=== PATIENT | female | born 1985 | race Two or more races ===

== ENCOUNTER 2017-07-03 19:09 | Emergency (ER) | payer MEDICAID ==
--- NOTE | 2017-07-03 20:00 | ER Document Report ---
ED Medical Screen (RME) - General Chief Complaint: Abdominal Pain Stated Complaint: ABDOMINAL PAIN Time Seen by Provider: 07/03/17 19:59 Notes: Patient states that she recently had a miscarriage in December of this year. She states she is still currently trying to become . She states that she has missed her period this month by several days. She took a home test and it was positive. She is also developed some cramping that started yesterday. No bleeding or leakage of fluid from the vaginal area. No problems with urination. She states she is concerned she may be miscarrying again so she came to the emergency department for evaluation. TRAVEL OUTSIDE OF THE [place] IN LAST 30 DAYS: No Past Medical History - Social History Chew tobacco use (# tins/day): No Frequency of alcohol use: None Drug Abuse: None Renal/ Medical History: Denies: Hx Peritoneal Dialysis Past Surgical History: Reports: Hx Section - X2 - Immunizations Hx Diphtheria, Pertussis, Tetanus Vaccination: Yes Physical Exam - Vital signs Vitals: Temp Pulse Resp BP Pulse Ox 98.7 F 65 16 133/78 H 100 07/03/17 19:36 07/03/17 19:36 07/03/17 19:36 07/03/17 19:36 07/03/17 19:36 Course - Vital Signs Vital signs: Temp Pulse Resp BP Pulse Ox 98.7 F 65 16 133/78 H 100 07/03/17 19:36 07/03/17 19:36 07/03/17 19:36 07/03/17 19:36 07/03/17 19:36
[2017-07-03 20:37] LABS: ABSOLUTE EOSINOPHILS # (AUTO) 0.2 10^3/uL (0.0-0.6); ABSOLUTE LYMPHOCYTES (AUTO) 2.5 10^3/uL (0.5-4.7); ABSOLUTE MONOCYTES (AUTO) 0.6 10^3/uL (0.1-1.4); ABSOLUTE NEUT (AUTO) 2.9 10^3/uL (1.7-8.2); BASOPHILS % (AUTO) 0.7 % (0-2); EOSINOPHILS % (AUTO) 2.9 % (0-6); HEMATOCRIT 35.7 % (36.0-47.0); HEMOGLOBIN 12.3 g/dL (12.0-15.5); HGB HCT DIFFERENCE 1.2; LYMPHOCYTES % (AUTO) 40.3 % (13-45); MEAN CORPUSCULAR HEMOGLOBIN 33.1 pg (27.0-33.4); MEAN CORPUSCULAR HGB CONC 34.5 g/dL (32.0-36.0); MEAN CORPUSCULAR VOLUME 96 fl (80-97); MONOCYTES % (AUTO) 8.9 % (3-13); RED BLOOD COUNT 3.72 10^6/uL (3.72-5.28); RED CELL DISTRIBUTION WIDTH 13.2 % (11.5-14.0); SEGMENTED NEUTROPHILS % (AUTO) 47.2 % (42-78); WHITE BLOOD COUNT 6.2 10^3/uL (4.0-10.5)
[2017-07-03 20:48] LABS: ANION GAP 10 (5-19); BLOOD UREA NITROGEN 14 mg/dL (7-20); CARBON DIOXIDE 25 mmol/L (22-30); CHLORIDE 103 mmol/L (98-107); CREATININE RESULT 0.65 mg/dL (0.52-1.25); GLUCOSE 90 mg/dL (75-110); POTASSIUM 3.8 mmol/L (3.6-5.0); SODIUM 138.4 mmol/L (137-145)
[2017-07-03 20:55] LABS: APPEARANCE,URINE CLEAR; BILIRUBIN,URINE NEGATIVE (NEGATIVE); GLUCOSE, URINE NEGATIVE (NEGATIVE); KETONES,URINE NEGATIVE (NEGATIVE); LEUKOCYTE ESTERASE,URINE NEGATIVE (NEGATIVE); NITRITE,URINE NEGATIVE (NEGATIVE); PROTEIN,URINE NEGATIVE (NEGATIVE)
--- NOTE | 2017-07-03 22:32 | ER Document Report ---
ED GI/ - General Mode of Arrival: Ambulatory Information source: Patient TRAVEL OUTSIDE OF THE [place] IN LAST 30 DAYS: No - HPI Onset: Other - Refer to HPI notes Associated symptoms: Nausea Similar symptoms previously: No Recently seen / treated by doctor: No <BLAIR PENA - Last Filed: 07/04/17 00:07> <EMILIO MOTTA - Last Filed: 07/09/17 12:19> - General Chief Complaint: Abdominal Pain Stated Complaint: ABDOMINAL PAIN Time Seen by Provider: 07/03/17 19:59 Notes: Patient is a 32 year old female presenting to the ED for a positive test at home. Patient had a miscarriage in December and is concerned for this . Patient's last menstrual period was in May. Patient states she started having some cramps and morning nausea so she took a test at home. Patient is A1. 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 Patient denies any vaginal bleeding or severe cramping. Patient is O+ according to her history. Patient also only has 1 kidney. Patient has no other medical history and does not take any regular medications. Patient recently moved here from [place] and does not have a PCP or LITIGATION SERVICES MANAGER yet. (BLAIR PENA) Past Medical History - General Information source: Patient - Social History Smoking Status: Never Smoker Cigarette use (# per day): No Chew tobacco use (# tins/day): No Frequency of alcohol use: None Drug Abuse: None Family History: None Patient has suicidal ideation: No Patient has homicidal ideation: No Renal/ Medical History: Reports: Other - A1 Past Surgical History: Reports: Hx Section - X2 - Immunizations Hx Diphtheria, Pertussis, Tetanus Vaccination: Yes <BLAIR PENA - Last Filed: 07/04/17 00:07> Review of Systems - Review of Systems Constitutional: No symptoms reported EENT: No symptoms reported Cardiovascular: No symptoms reported Respiratory: No symptoms reported Gastrointestinal: See HPI, Abdominal pain, Nausea Genitourinary: No symptoms reported Female Genitourinary: No symptoms reported Musculoskeletal: No symptoms reported Skin: No symptoms reported Hematologic/Lymphatic: No symptoms reported Neurological/Psychological: No symptoms reported -: Yes All other systems reviewed and negative <BLAIR PENA - Last Filed: 07/04/17 00:07> Physical Exam - Vital signs Interpretation: Normal <BLAIR PENA - Last Filed: 07/04/17 00:07> <EMILIO MOTTA - Last Filed: 07/09/17 12:19> - Vital signs Vitals: Temp Pulse Resp BP Pulse Ox 98.7 F 65 16 133/78 H 100 07/03/17 19:36 07/03/17 19:36 07/03/17 19:36 07/03/17 19:36 07/03/17 19:36 - Notes Notes: GENERAL: Alert, interacts well. No acute distress. HEAD: Normocephalic, atraumatic. EYES: Appear normal. Pupils equal, round, and reactive to light. ENT: Moist mucus membranes, tongue midline. NECK: Full range of motion. Supple. Trachea midline. LUNGS: Clear to auscultation bilaterally, no wheezes, rales, or rhonchi. No respiratory distress. HEART: Regular rate and rhythm. No murmurs, gallops, or rubs. ABDOMEN: Soft, non-tender. Non-distended. Normal bowel sounds. EXTREMITIES: Moves all 4 extremities spontaneously. Normal strength. No edema. NEUROLOGICAL: Alert and oriented x3. Normal speech. No focal neurological deficits. GSC 15. PSYCH: Normal affect, normal mood. SKIN: Warm, dry, normal turgor. No rashes or lesions noted. (BLAIR PENA) Course - Laboratory Result Diagrams: 07/03/17 20:15 07/03/17 20:15 <BLAIR PENA - Last Filed: 07/04/17 00:07> - Laboratory Result Diagrams: 07/03/17 20:15 07/03/17 20:15 <EMILIO MOTTA - Last Filed: 07/09/17 12:19> - Re-evaluation Re-evalutation: 07/03/17 22:59 Patient presents emergency department home test was positive. She has had a little bit of cramping but no pain or bleeding. Patient is and found out during her first that she has a duplicate uterus and duplicate cervix. She had 2 C-sections successfully and had one miscarriage. She did go home test after she felt signs and symptoms of being and it was positive so she wanted confirmation here. She is hemodynamically stable no pain no nausea no vomiting no cramping no back pain. She is O+ by history. And well-appearing and nontoxic. No emergent concerns for ectopic . Discharge her to follow-up with [facility] [employer] SUPERVISOR physician gave her contact information to call in a.m. for close follow-up in 3-5 days and specifically discussed with her and friend at bedside reasons for ED return sooner including pain cramping bleeding or any other concerns. (EMILIO MOTTA) - Vital Signs Vital signs: Temp Pulse Resp BP Pulse Ox 98 F 65 20 130/72 H 100 07/03/17 23:11 07/03/17 23:11 07/03/17 23:11 07/03/17 23:11 07/03/17 23:11 - Laboratory Laboratory results interpreted by me: 07/03/17 07/03/17 07/03/17 20:15 20:15 20:15 Hct 35.7 L Beta HCG, Quant 494.53 H Urine Urobilinogen 2.0 H Discharge <BLAIR PENA - Last Filed: 07/04/17 00:07> <EMILIO MOTTA - Last Filed: 07/09/17 12:19> - Discharge Clinical Impression: First trimester Condition: Stable Disposition: HOME, SELF-CARE Additional Instructions: You are . care is best started as early in as possible. If you're unsure about continuing this , you should discuss this with your physician or with drug safety physician at [facility]. You should take only medications approved by your physician. Acetaminophen can safely be taken for minor pains. As a rule, medication for chronic conditions such as asthma or seizures can safely be continued. You should discuss with the physician every medicine you take. Any regular exercise program can be continued. Talk to your physician, however, before engaging in competitive or demanding sports. Alcohol, smoking, and "street drugs" are dangerous to your baby. Cocaine is especially dangerous. Don't use any illicit drugs! Referrals: ESTHER GORDON DO [[facility]] - (Contact his office in a.m. for follow- up appointment in the next 3-5 days return immediately to the emergency department for pain cramping bleeding or any other concerns) Scribe Attestation: 07/03/17 22:59 I personally performed the services described in the documentation reviewed the documentation recorded by my scribe in my presence and it accurately and completely records my words and actions (EMILIO MOTTA) Scribe Documentation - Scribe Written by Scribe:: Saurav Leahy 07/03/2017 22:55 acting as scribe for :: Sae <BLAIR PENA - Last Filed: 07/04/17 00:07>
[2017-07-03 23:14] VITALS: BP 130/72
== END 2017-07-03 23:11 | disposition home or self-care (01) ==
LOC: ER 19:09
DX: O26.91 Pregnancy related conditions, unspecified, first trimester (principal); R10.9 Unspecified abdominal pain; R11.0 Nausea
CPT/HCPCS: 36415; 80048; 81001; 84702; 85025; 99284

== ENCOUNTER → 2017-07-05 | Outpatient (CLI) | payer MEDICAID | LOC: OD 16:44 | PROVIDERS: ATTEND Obstetrics & Gynecology | DX: O20.0 Threatened abortion (principal) | CPT/HCPCS: 36415; 84702 ==

== ENCOUNTER 2017-07-18 20:37 | Emergency (ER) | payer MEDICAID ==
[2017-07-19 01:02] LABS: ABSOLUTE EOSINOPHILS # (AUTO) 0.2 10^3/uL (0.0-0.6); ABSOLUTE LYMPHOCYTES (AUTO) 2.3 10^3/uL (0.5-4.7); ABSOLUTE MONOCYTES (AUTO) 0.5 10^3/uL (0.1-1.4); ABSOLUTE NEUT (AUTO) 3.1 10^3/uL (1.7-8.2); BASOPHILS % (AUTO) 0.5 % (0-2); EOSINOPHILS % (AUTO) 2.5 % (0-6); HEMATOCRIT 35.6 % (36.0-47.0); HEMOGLOBIN 12.2 g/dL (12.0-15.5); LYMPHOCYTES % (AUTO) 37.8 % (13-45); MEAN CORPUSCULAR HEMOGLOBIN 32.6 pg (27.0-33.4); MEAN CORPUSCULAR HGB CONC 34.2 g/dL (32.0-36.0); MEAN CORPUSCULAR VOLUME 95 fl (80-97); MONOCYTES % (AUTO) 8.4 % (3-13); RED BLOOD COUNT 3.73 10^6/uL (3.72-5.28); RED CELL DISTRIBUTION WIDTH 12.9 % (11.5-14.0); SEGMENTED NEUTROPHILS % (AUTO) 50.8 % (42-78); WHITE BLOOD COUNT 6.2 10^3/uL (4.0-10.5)
--- NOTE | 2017-07-19 01:07 | ER Document Report ---
ED GI/ - General Chief Complaint: Vag Bleeding, +preg <12wks Stated Complaint: VAGINAL BLEEDING Time Seen by Provider: 07/19/17 00:54 TRAVEL OUTSIDE OF THE [place] IN LAST 30 DAYS: No - HPI Notes: 07/19/17 01:04 This is a A1 female with LMP June 07 estimated approximately 6 weeks gestation who presents with vaginal bleeding. This started shortly prior to coming to the emergency department with some mild brownish red blood. It is now just spotting and has decreased. She has no pain with this at all. She was seen earlier in the month and had a repeat quantitative hCG that was improving. She did have a miscarriage in December and is concerned she could be having another one. She knows her blood type is A+. She denies any dysuria hematuria or other recent illness. Denies fever. No trauma was involved - Related Data Allergies/Adverse Reactions: No Known Allergies Allergy (Unverified 07/18/17 21:30) Past Medical History - General Last Menstrual Period: 06/07 - Social History Smoking Status: Never Smoker Frequency of alcohol use: None Drug Abuse: None Family History: None Patient has suicidal ideation: No Patient has homicidal ideation: No Renal/ Medical History: Denies: Hx Peritoneal Dialysis Past Surgical History: Reports: Hx Section - X2 - Immunizations Hx Diphtheria, Pertussis, Tetanus Vaccination: Yes Review of Systems - Review of Systems -: Yes All other systems reviewed and negative Physical Exam - Vital signs Notes: Reviewed, see nurse's note - Notes Notes: GENERAL: VS as per nursing doc. Well-appearing, well-nourished and in no acute distress. HEAD: Atraumatic, normocephalic. EYES: Pupils equal round and reactive to light, extraocular movements intact, sclera anicteric, no conjunctival injection or discharge. ENT: Nares patent, oropharynx clear without exudates, moist mucous membranes. NECK: Normal range of motion, supple without lymphadenopathy. LUNGS: Breath sounds clear to auscultation bilaterally and equal. No wheezes rales or rhonchi. HEART: Regular rate and rhythm without murmurs. ABDOMEN: Soft, non-tender, normoactive bowel sounds. No guarding, no rebound. No masses appreciated. No Milan sign. BACK: No CVA tenderness. EXTREMITIES: Normal range of motion, no calf tenderness, no edema. NEUROLOGICAL: Grossly normal motor and sensory exam. PSYCH: Normal mood, normal affect. SKIN: Warm, dry, normal turgor, no lesions noted. Course - Laboratory Result Diagrams: 07/19/17 00:37
[2017-07-19 01:08] LABS: APPEARANCE,URINE CLEAR; BILIRUBIN,URINE NEGATIVE (NEGATIVE); GLUCOSE, URINE NEGATIVE (NEGATIVE); KETONES,URINE NEGATIVE (NEGATIVE); LEUKOCYTE ESTERASE,URINE NEGATIVE (NEGATIVE); NITRITE,URINE NEGATIVE (NEGATIVE); PROTEIN,URINE NEGATIVE (NEGATIVE); URINE SPECIFIC GRAVITY 1.031; UROBILINOGEN,URINE NEGATIVE mg/dL (<2.0)
--- NOTE | 2017-07-19 03:47 | RADIOLOGY REPORT (SQ) ---
EXAM DESCRIPTION: U/S OB TRANSVAGINAL W/O DOP COMPLETED DATE/TIME: 07/19/2017 3:27 am REASON FOR STUDY: Vaginal bleeding COMPARISON: None. TECHNIQUE: Transvaginal static and realtime grayscale images acquired of the pelvis. Additional elijah cted spectral and color Doppler images recorded. All images stored on PACs. [facility] [place] LIMITATIONS: None. FINDINGS: FETUS: Living intrauterine . EGA: 03/11/2018 MARIE: 6 weeks 3 days FHR: 115 beats per minute. SUBCHORIONIC BLEED: No. SIZE OF BLEED: Not applicable. UTERUS: No masses. No anomalies. CERVICAL LENGTH: Not available. Nabothian cysts. RIGHT ADNEXA: Ovary not identified. No adnexal free fluid. No adnexal masses. LEFT ADNEXA: Normal ovary with normal vascular flow. No adnexal free fluid. No adnexal masses. 1.8 cm. FREE FLUID: None. OTHER: No other significant finding. IMPRESSION: LIVING INTRAUTERINE . EGA 6 weeks 3 days Trimester of : First - 0 to 13 weeks. TECHNICAL DOCUMENTATION: JOB ID: [id number] [employer]- All Rights Reserved
[2017-07-19 04:47] VITALS: BP 101/71
== END 2017-07-19 04:35 | disposition home or self-care (01) ==
LOC: ER 20:37
DX: O20.0 Threatened abortion (principal); Z3A.01 Less than 8 weeks gestation of pregnancy; Z87.59 Personal history of other complications of pregnancy, childbirth and the puerperium
CPT/HCPCS: 36415; 76817; 81001; 84702; 85025; 99284

== ENCOUNTER 2018-03-06 16:24 | Inpatient (IN) | payer MEDICAID ==
[~2018-03-06 16:24] MED LIST: DEXAMETHASONE SOD PHOSPHATE INJ 4 MG/1 ML VIAL ONE; GLYCOPYRROLATE INJ 0.4 MG/2 ML VIAL ONE; KETOROLAC TROMETHAMINE 60 MG/2 ML SDV ONE; METOCLOPRAMIDE HCL INJ/PF 10 MG/2 ML SDV ONE; ONDANSETRON HCL INJ/PF 4 MG/2 ML SDV ONE; PHENYLEPHRINE HCL INJ/PF 10 MG/1 ML SDV ONE
[2018-03-06] MEDS ORDERED: RINGERS SOLUTION,LACTATED 1,000 ML IV ONE (16:56)
[2018-03-06 17:21] LABS: APPEARANCE,URINE CLEAR; BILIRUBIN,URINE NEGATIVE (NEGATIVE); COLOR,URINE YELLOW; GLUCOSE, URINE NEGATIVE (NEGATIVE); KETONES,URINE NEGATIVE (NEGATIVE); LEUKOCYTE ESTERASE,URINE TRACE (NEGATIVE); NITRITE,URINE NEGATIVE (NEGATIVE); PROTEIN,URINE NEGATIVE (NEGATIVE); URINE SPECIFIC GRAVITY 1.018; UROBILINOGEN,URINE NEGATIVE mg/dL (<2.0)
[2018-03-06 17:54] LABS: URINE AMPHETAMINES SCREEN NEGATIVE; URINE BARBITURATES SCREEN NEGATIVE; URINE BENZODIAZEPINES SCREEN NEGATIVE; URINE COCAINE SCREEN NEGATIVE; URINE MARIJUANA (THC) SCREEN NEGATIVE; URINE PHENCYCLIDINE SCREEN NEGATIVE
[2018-03-06] MEDS ORDERED: NALBUPHINE HCL INJ 10 MG/1 ML AMPULE INJ ONE (18:00)
[2018-03-06 18:03] LABS: URINE METHADONE SCREEN NEGATIVE
[2018-03-06] MEDS ORDERED: NALBUPHINE HCL INJ 10 MG/1 ML AMPULE ONE (18:15)
[2018-03-06 18:29] LABS: ABSOLUTE BASOPHILS # (AUTO) 0.1 10^3/uL (0.0-0.2); ABSOLUTE LYMPHOCYTES (AUTO) 1.1 10^3/uL (0.5-4.7); ABSOLUTE MONOCYTES (AUTO) 1.1 10^3/uL (0.1-1.4); ABSOLUTE NEUT (AUTO) 8.7 10^3/uL (1.7-8.2); BASOPHILS % (AUTO) 0.5 % (0-2); EOSINOPHILS % (AUTO) 0.4 % (0-6); HEMATOCRIT 36.6 % (36.0-47.0); HEMOGLOBIN 12.5 g/dL (12.0-15.5); LYMPHOCYTES % (AUTO) 9.8 % (13-45); MEAN CORPUSCULAR HGB CONC 34.1 g/dL (32.0-36.0); MEAN CORPUSCULAR VOLUME 94 fl (80-97); MONOCYTES % (AUTO) 10.2 % (3-13); PLATELET COUNT 157 10^3/uL (150-450); RED BLOOD COUNT 3.89 10^6/uL (3.72-5.28); RED CELL DISTRIBUTION WIDTH 13.4 % (11.5-14.0); SEGMENTED NEUTROPHILS % (AUTO) 79.1 % (42-78); TOTAL CELLS COUNTED % (AUTO) 100 %
[2018-03-06] MEDS: RINGERS SOLUTION,LACTATED 1,000 ML IV PRN (18:29)
[2018-03-06] MEDS ORDERED: CEFAZOLIN 2 GM/D5W RTU 2 GM/50 ML RTUPB IV ONE (18:53)
[2018-03-06] MEDS ORDERED: CITRIC ACID/SODIUM CITRATE ORAL SOLN 15 ML UDCUP ONE (18:53)
[2018-03-06] MEDS ORDERED: OXYTOCIN 10 UNIT/ML VIAL ONE (18:57)
[2018-03-06] MEDS ORDERED: EPHEDRINE SULFATE INJ 50 MG/1 ML AMPULE ONE (18:58)
[2018-03-06] MEDS ORDERED: OXYTOCIN/NORMAL SALINE 20 UNIT/1,000 ML RTUINJ ONE (18:58)
[2018-03-06] MEDS ORDERED: FENTANYL CITRATE INJ/PF 100 MCG/2 ML AMPUL ONE ×3 (18:58→22:11)
[2018-03-06] MEDS ORDERED: MIDAZOLAM 2 MG/2 ML INJ ONE (18:58)
[2018-03-06] MEDS ORDERED: TETRACAINE HCL/PF 20MG/2ML AMPULE (SPINAL) ONE (19:03)
--- NOTE | 2018-03-06 19:41 | Admission Physical ---
Datetime Report Generated by CPN: 03/06/2018 19:40 CURRENT ADMISSION Hx Assessment: The History has been Reviewed and is Current Chief Complaint: Uterine Contractions Indication for Induction: Not Applicable Admit Impression : Term, Intrauterine ; Active Labor; Repeat Section Admit Plan: Admit to Unit; Initiate Section Protocol ALLERGIES Medication Allergies: No Medication Allergies: No Known Allergies (03/06/2018) Latex: No Latex Allergies OBSTETRICAL HISTORY EDC: 03/14/2018 00:00 : 4 Para: 2 Term: 2 Livin Cesareans: 2 SEE RECORDS Alcohol: No Marijuana : No Cocaine: No Other Illicit Drugs: No Cigarettes: Never Smoker. [id number] PHYSICAL EXAM General: Normal HEENT: Normal Neurologic: Normal Thyroid: Deferred Heart: Normal Lungs: Normal Breast: Normal Back: Normal Abdomen: Normal Genitourinary Exam: Normal Extremities: Normal DTRs: Normal Pelvic Type: Adequate Vital Signs: Reviewed VAGINAL EXAM Dilatation: 2 Effacement: 60 Station: -3 Contraction Comments: 5 min apart MEMBRANES Membranes: Intact FETUS A EGA: 38.6 Monitoring: External US FHR- Baseline: 150 Variability: Moderate 6-25bpm Accelerations: Absent Decelerations: None FHR Category: Category I Estimated Weight (gm): 3400 Presentation: Vertex Admit Comment: Pt having ctx all day. Denies lof, some bloody show, states active baby. Made cervical change from 2-3 with bloody show GBS negative Pt started care @ [facility], hx 2 previous c/s, uterine dilelphys, 1 kidney and mullerian anomaly, hx pre-e with G1 Admit to L _ D, consent for r c/s. PLANS FOR LABOR AND DELIVERY Labor and Delivery: None Pain Management: Spinal Feeding Preference: Breast Benefit of Breast Feed Discussed: Yes Circumcision: Yes INFORMED CONSENT Assignment: Katelyn Pandey MD Signature: with User ID: [email or web address] : with User ID: [email or web address]
[2018-03-06] MEDS ORDERED: MISOPROSTOL 0.2 MG TABLET ONE (20:00)
[2018-03-06] MEDS ORDERED: CARBOPROST TROMETHAMINE INJ 250 MCG/1 ML AMPULE ONE (20:02)
[2018-03-06] MEDS ORDERED: METHYLERGONOVINE MALEATE INJ/PF 0.2 MG/1 ML AMPULE ONE (20:02)
[2018-03-06] MEDS ORDERED: ONDANSETRON HCL INJ/PF 4 MG/2 ML SDV IV PRN (20:11)
[2018-03-06] MEDS ORDERED: DIPHENHYDRAMINE HCL 50 MG/ML VIAL IV PRN (20:11)
[2018-03-06] MEDS ORDERED: MEPERIDINE HCL/PF INJ 25 MG/1 ML DISP.SYRIN IV PRN (20:11)
[2018-03-06] MEDS ORDERED: PROMETHAZINE HCL INJ 25 MG/1 ML VIAL IV PRN ×3 (20:11→21:19)
[2018-03-06] MEDS ORDERED: FENTANYL CITRATE INJ/PF 100 MCG/2 ML AMPUL IV PRN ×3 (20:11)
[2018-03-06] MEDS ORDERED: MORPHINE SULFATE 10 MG/ML INJ IV PRN (20:11)
[2018-03-06] MEDS ORDERED: ACETAMINOPHEN 100 ML IV ONE (21:01)
--- NOTE | 2018-03-06 21:06 | Brief Operative Note ---
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 Prior uterine scar noted on right uterus and appears to extend into left uterus. Apgars 9/9, weight 7#10oz. EBL 800ml (QBL pending), IVF 1900ml, UOP 150ml and clear COMPLICATIONS: None ESTIMATED BLOOD LOSS: 800ml TISSUE REMOVED OR ALTERED: placenta and cord not sent to pathology TECHNICAL PROCEDURE: Repeat Section, Scar Revision
[2018-03-06] MEDS ORDERED: SIMETHICONE 80 MG TAB.CHEW PO PRN (21:19)
[2018-03-06] MEDS ORDERED: DIPH/PERTUSS(ACELL)/TETANUS VAC/PF 0.5 ML SYR (>=10YO) IM PRN (21:19)
[2018-03-06] MEDS ORDERED: ACETAMINOPHEN 100 ML IV PRN (21:19)
[2018-03-06] MEDS ORDERED: ACETAMINOPHEN 325 MG TABLET PO PRN (21:19)
[2018-03-06] MEDS ORDERED: OXYCODONE-ACETAMINOPHEN 5-325 MG TABLET PO PRN (21:19)
[2018-03-06] MEDS ORDERED: OXYTOCIN/NORMAL SALINE 20 UNIT/1,000 ML RTUINJ IV PRN (21:19)
[2018-03-06] MEDS ORDERED: HYDROMORPHONE HCL INJ/PF 2 MG/ML AMPULE IV PRN (21:19)
[2018-03-06] MEDS ORDERED: MEASLES,MUMPS&RUBELLA VACC/PF 0.5 ML VIAL SUBCUT PRN (21:19)
--- NOTE | 2018-03-06 21:19 | Operative Report ---
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 Infant was in right uterus. Prior uterine scar noted on right uterus and appears to extend into left uterus. Apgars 9/9, weight 7#10oz. EBL 800ml (QBL pending), IVF 1900ml, UOP 150ml and clear PROCEDURE: Anesthesia provider: [David Beckman MD MAIL [facility]ER] Estimated blood loss: [800ml] Urine output: [150ml] IV fluids: [1900ml] Indications: [33yo at 38+6ega presents in active labor. complicated by uterine didelphys, 1 kidney, in right uterus, obesity, history of section times two. She declines BTL and desires nexplanon for contraception. She presented to labor and delivery with regular uterine contractions and cervical dilation of 2cm. Cervix changed to 3cm and bloody show noted. Reviewed recommendations to proceed with Repeat due to active labor. She verbalized understanding and desires to proceed with Repeat section.] Procedure: The patient was taken to the operating room where spinal anesthesia was obtained and found to be adequate. She was then prepped and draped in the normal sterile fashion and placed in the dorsal supine position with a leftward tilt. The prior Pfannenstiel skin incision was excised and then incision was carried through to the underlying layers of the fascia with the scalpel. The fascia was incised in the midline and the incision extended laterally with the Nguyen scissors. The superior aspect of the fascial incision was then grasped with Leonardo clamps elevated and the underlying rectus muscles dissected off [ bluntly]. Attention was then turned to the inferior aspect of the fascial incision which in a similar fashion was grasped, tented up with Leonardo clamps, and the rectus muscles dissected off [bluntly]. The rectus muscles were then in the midline and the peritoneum at the amount identified and entered [bluntly]. The peritoneal incision was then extended superiorly and inferiorly with good visualization of the bladder. The bladder blade was inserted and the vesicouterine peritoneum identified grasped with [place]er pickups and entered sharply with the Metzenbaum scissors. This incision was then extended laterally with the Metzenbaum scissors and a bladder flap created digitally. Upon inspection the right uterus appears to have had at least one prior incision and this incision extends into the junction of the right and left uterus and somewhat into the left uterus. The bladder blade was then reinserted and the lower uterine segment of the right uterus incised in a transverse fashion with the scalpel. The uterine incision was then extended bluntly carefully. The bladder blade was removed and the infant's head was delivered from cephalic presentation atraumatically. The nose and mouth were suctioned and the cord doubly clamped and cut. And the infant was handed off to waiting pediatricians. The placenta was then delivered spontaneously and the uteri exteriorized and cleared of all clots and debris. The uterine incision was then repaired with 1- 0 Vicryl in a running locked fashion. A second layer of the same suture was used to obtain hemostasis via imbrication of the initial layer. A third layer of 1-0 vicryl was used to repair the junction of the right and left uterus for hemostasis. The bladder flap was then repaired with 3-0 chromic in a running fashion. The uterus was returned to the patient's abdomen and Interceed was placed overlying the uterine incision to prevent adhesions. The gutters were cleared of all clots and debris. All operative sites were noted to be hemostatic. The fascia was reapproximated with 0 Vicryl in a running fashion from each lateral edge to the midline. The skin was closed with 3-0 Monocryl in a running subcuticular fashion with overlying Dermabond for additional dressing as well as wound closure. The patient tolerated the procedure well. Sponge lap needle and instrument counts are correct times 2. 2 g of Ancef were given prior to skin incision. The patient was taken to the recovery area awake and in stable condition.
[2018-03-06] MEDS ORDERED: MISOPROSTOL 0.2 MG TABLET PR ONE (21:20)
[2018-03-06] MEDS ORDERED: METHYLERGONOVINE MALEATE INJ/PF 0.2 MG/1 ML AMPULE IM ONE (21:21)
[2018-03-06] MEDS: KETOROLAC TROMETHAMINE INJ/PF 30 MG/1 ML SDV IV SCH (22:36)
[2018-03-07] MEDS: OXYCODONE-ACETAMINOPHEN 5-325 MG TABLET PO PRN ×4 (04:30→22:00)
[2018-03-07] MEDS: KETOROLAC TROMETHAMINE INJ/PF 30 MG/1 ML SDV IV SCH ×2 (05:22→13:11)
[2018-03-07] MEDS: RINGERS SOLUTION,LACTATED 1,000 ML IV PRN (05:23)
[2018-03-07 07:37] LABS: HEMATOCRIT 33.2 % (36.0-47.0); HEMOGLOBIN 11.3 g/dL (12.0-15.5); MEAN CORPUSCULAR HEMOGLOBIN 31.8 pg (27.0-33.4); MEAN CORPUSCULAR VOLUME 93 fl (80-97); PLATELET COUNT 164 10^3/uL (150-450); RED BLOOD COUNT 3.55 10^6/uL (3.72-5.28); RED CELL DISTRIBUTION WIDTH 13.3 % (11.5-14.0); WHITE BLOOD COUNT 19.9 10^3/uL (4.0-10.5)
--- NOTE | 2018-03-07 09:01 | PDOC PROGRESS REPORT ---
Subjective-OB Progress Note for:: 03/07/18 Subjective: sp r c/s day #1 Pt doing well, tolerating diet, lochia is stable, pain well controlled, voiding without difficulty, passing gas, bonding with baby. Physical Exam (OB) Vital Signs: Temp Pulse Resp BP Pulse Ox 98.3 F 74 18 118/72 96 03/07/18 04:23 03/07/18 04:23 03/07/18 03:11 03/07/18 04:23 03/07/18 04:23 Intake & Output 03/06/18 03/07/18 03/08/18 06:59 06:59 06:59 Intake Total 850 Balance 850 Weight 110.4 kg - Dressing Removed: No Incision: Well Approximated Closure Type: Surgical Glue - Lochia Lochia Amount: Scant < 10 ml Lochia Color: Rubra/Red - Abdomen Description: Tender, Round Hernia Present: No Fundal Description: Firm Fundal Height: u/3 - u/4 Objective-Diagnostic Laboratory: 03/07/18 07:00 03/06/18 03/06/18 03/06/18 16:50 18:10 18:10 WBC 11.0 H RBC 3.89 Hgb 12.5 Hct 36.6 MCV 94 MCH 32.0 MCHC 34.1 RDW 13.4 Plt Count 157 Seg Neutrophils % 79.1 H Lymphocytes % 9.8 L Monocytes % 10.2 Eosinophils % 0.4 Basophils % 0.5 Absolute Neutrophils 8.7 H Absolute Lymphocytes 1.1 Absolute Monocytes 1.1 Absolute Eosinophils 0.0 Absolute Basophils 0.1 Urine Color YELLOW Urine Appearance CLEAR Urine pH 7.0 Ur Specific [place] 1.018 Urine Protein NEGATIVE Urine Glucose (UA) NEGATIVE Urine Ketones NEGATIVE Urine Blood MODERATE H Urine Nitrite NEGATIVE Ur Leukocyte Esterase TRACE H Blood Type A POSITIVE Antibody Screen NEGATIVE 03/07/18 07:00 WBC 19.9 H RBC 3.55 L Hgb 11.3 L Hct 33.2 L MCV 93 MCH 31.8 MCHC 34.0 RDW 13.3 Plt Count 164 Seg Neutrophils % Lymphocytes % Monocytes % Eosinophils % Basophils % Absolute Neutrophils Absolute Lymphocytes Absolute Monocytes Absolute Eosinophils Absolute Basophils Urine Color Urine Appearance Urine pH Ur Specific [place] Urine Protein Urine Glucose (UA) Urine Ketones Urine Blood Urine Nitrite Ur Leukocyte Esterase Blood Type Antibody Screen Assessment and Plan(PN) - Assessment and Plan (1) Delivery by section at 37-39 weeks of gestation due to labor Is this a current diagnosis for this admission?: Yes Plan: routine post-op care (2) H/O section Is this a current diagnosis for this admission?: Yes Plan: routine post op care (3) Obesity affecting Qualifiers: Trimester: third trimester Qualified Code(s): O99.213 - Obesity complicating , third trimester Is this a current diagnosis for this admission?: Yes Plan: routine care (4) 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
[2018-03-07] MEDS: DOCUSATE SODIUM 100 MG CAPSULE PO SCH ×2 (09:23→17:35)
[2018-03-07] MEDS: PRENATAL VITAMIN W DHA CAPSULE PO SCH (09:23)
[2018-03-07] MEDS: IBUPROFEN 800 MG TABLET PO SCH (23:49)
[2018-03-08 04:01] VITALS: BP 100/55
[2018-03-08] MEDS: IBUPROFEN 800 MG TABLET PO SCH (06:23)
[2018-03-08] MEDS: DOCUSATE SODIUM 100 MG CAPSULE PO SCH (09:10)
[2018-03-08] MEDS: PRENATAL VITAMIN W DHA CAPSULE PO SCH (09:10)
[2018-03-08] MEDS: OXYCODONE-ACETAMINOPHEN 5-325 MG TABLET PO PRN (09:15)
--- NOTE | 2018-03-08 10:23 | PDOC DISCHARGE SUMMARY ---
Final Diagnosis Discharge Date: 03/08/18 - Final Diagnosis (1) Delivery by section at 37-39 weeks of gestation due to labor Is this a current diagnosis for this admission?: Yes (2) H/O section Is this a current diagnosis for this admission?: Yes Discharge Data - Discharge Medication Home Medications: Vit/Dha [ Multi + Dha Capsule] 1 cap PO DAILY capsule Procedures: NST Intrapartum Procedure(s): : Low Cervical, Transverse - Diagnosis Test Laboratory: Temp Pulse Resp BP Pulse Ox 97.9 F 84 18 100/55 L 98 03/08/18 04:00 03/07/18 23:25 03/08/18 04:00 03/08/18 04:00 03/08/18 04:00 03/06/18 03/06/18 03/07/18 16:50 18:10 07:00 RBC 3.89 3.55 L Hgb 12.5 11.3 L Hct 36.6 33.2 L Urine Opiates Screen NEGATIVE - Discharge information/Instructions Discharge Activity: Balance Activity w/Rest, No Lifting/Push/Pulling, Pelvic Rest, No tub bath Discharge Diet: Regular Disposition: HOME, SELF-CARE Follow [facility]: [facility] in: 1, Weeks
--- NOTE | 2018-03-14 08:48 | Delivery Summary ---
Del Sum A-C Datetime Report Generated by CPN: 03/14/2018 08:47 DELIVERY PERSONNEL DELIVERY PERSONNEL: [id number] Delivery Doctor:: Katelyn Pandey MD Anesthesiologist:: Frederic Beckman MD BULK TANK DRIVER:: Ro Yeager CRNA Labor and Delivery Nurse:: Lalita Claire RN Senior Drafter:: Lalita Claire RN Sequencing Machine Operator/COMMERCIAL LITIGATION ASSOCIATE: Lachelle Wilde, SUPERVISOR [employer] Sequencing Machine Operator/COMMERCIAL LITIGATION ASSOCIATE: [facility] Additional Personnel: : Gee Ayers COMMERCIAL LITIGATION ASSOCIATE MATERNAL INFORMATION Delivery Anesthesia: Spinal Medications After Delivery: Pitocin Bolus-Please Comment; Pitocin Drip 20 Units/1000ml NSS; Methergine 0.2mg IM; Other-Please Comment Meds After Delivery Comment: cytotec 1000mcg Per Rectum/Vagina Maternal Complications: None LABOR SUMMARY EDC: 03/14/2018 00:00 No. Babies in Womb: 1 Attempted: No Labor Anesthesia: None LABOR INFORMATION Reason for Induction: Not Applicable Onset of Labor: 03/06/2018 16:30 Oxytocin: N/A Group B Beta Strep: negative Antibiotics # of Doses: 1 Antibiotics Time of Last Dose: 1923 Name of Antibiotic Given: ancef 2gm Steroids Given: None Reason Steroids Not Administered: Not Applicable MEMBRANES Membranes Rupture Method: Spontaneous Rupture of Membranes: 03/06/2018 19:55 Length of Rupture (hr): 0.00 Amniotic Fluid Color: Moderate Meconium Amniotic Fluid Amount: Moderate Amniotic Fluid Odor: None STAGES OF LABOR Stage 3 hr: 0 Stage 3 min: 1 Total Time in Labor hr: 3 Total Time in Labor min: 26 VAGINAL DELIVERY Episiotomy: None Laceration #1: None Laceration Extension #1: N/A Laceration Repair: Not Applicable Sponge Count Correct: N/A Sharps Count Correct: N/A CSECTION DELIVERY Primary Indication: Repeat Elective Secondary Indication: N/A CSection Urgency: Non-Scheduled CSection Incidence: Repeat Labor: Labor Elective: Nonelective CSection Incision: Lower Uterine Transverse BABY A INFORMATION Infant Delivery Date/Time: 03/06/2018 19:55 Method of Delivery: Born in Route : No : N/A Forceps: N/A Vacuum Extraction: N/A Shoulder Dystocia : No PRESENTATION/POSITION BABY A Presentation: Cephalic Cephalic Presentation: Vertex PLACENTA INFORMATION BABY A Placenta Delivery Time : 03/06/2018 19:56 Placenta Method of Delivery: Manual Removal Placenta Status: Delivered SCORES BABY A Heart Rate 1 min: >100 bpm Resp Effort 1 min: Good Cry Reflex Irritability 1 min: Cough or Sneeze or Pulls Away Muscle Tone 1 min: Active Motion Color 1 min: Body [place], Extremities Blue SCORE 1 MIN: 9 Heart Rate 5 min: >100 bpm Resp Effort 5 min: Good Cry Reflex Irritability 5 min: Cough or Sneeze or Pulls Away Muscle Tone 5 min: Active Motion Color 5 min: Body [place], Extremities Blue SCORE 5 MIN: 9 INFANT INFORMATION BABY A Gestational Age at Delivery: 38.6 Gestational Status: Early Term- 37- 38.6 Weeks Infant Outcome : Liveborn Infant Condition : Stable Infant Sex: Male IDENTIFICATION BABY A Verification Date/Time: 03/06/2018 20:08 ID Band Number: [id number] Mother's Name Verified: Yes RN Verifying : Howard Vilchis, ISHMAEL Additional Verifying Personnel: Adriano Ayers CNA WEIGHT/LENGTH BABY A Birthweight (gm): 3460 Infant Weight (lb): 7 Weight (oz): 10 Infant Length (in): 20.50 Length (cm): 52.07 CORD INFORMATION BABY A No. Cord Vessels: 3 Nuchal Cord : N/A Cord Blood Taken: No-Annotate ASSESSMENT BABY A Skin to Skin: Yes Skin to Skin Time (min): 30 Transferred To: [facility] BABY B INFORMATION : N/A
== END 2018-03-08 13:25 | disposition home or self-care (01) | DRG 766 ==
LOC: LC 16:24 → LR 18:41 → 2N 23:15
PROVIDERS: ADMIT Student in an Organized Health Care Education/Training Program; ATTEND Student in an Organized Health Care Education/Training Program
PROC: 10D00Z1 Extraction of Products of Conception, Low, Open Approach (ICD-10-PCS; principal; 2018-03-06)
PROC: 4A1HXCZ Monitoring of Products of Conception, Cardiac Rate, External Approach (ICD-10-PCS; 2018-03-06)
PROC: 3E0234Z Introduction of Serum, Toxoid and Vaccine into Muscle, Percutaneous Approach (ICD-10-PCS; 2018-03-08)
DX: O65.5 Obstructed labor due to abnormality of maternal pelvic organs (principal); O77.0 Labor and delivery complicated by meconium in amniotic fluid; Q51.2 Other doubling of uterus; O34.211 Maternal care for low transverse scar from previous cesarean delivery; O34.03 Maternal care for unspecified congenital malformation of uterus, third trimester; O99.214 Obesity complicating childbirth; E66.9 Obesity, unspecified; Z68.38 Body mass index [BMI] 38.0-38.9, adult; N85.8 Other specified noninflammatory disorders of uterus; Z3A.38 38 weeks gestation of pregnancy; Z37.0 Single live birth; O99.89 Other specified diseases and conditions complicating pregnancy, childbirth and the puerperium; N73.6 Female pelvic peritoneal adhesions (postinfective); Z90.5 Acquired absence of kidney; Z23 Encounter for immunization
CPT/HCPCS: 1961; 36415; 80307; 81005; 85025; 85027; 86592; 86850; 86900; 86901; 90715; 94799; J0131; J0690; J1100; J1885; J2210; J2250; J2300; J2370; J2405; J2590; J2765; J3010; J3490; J7120; Q0114